=== PATIENT | male | born 1955 | race Caucasian/White ===

== ENCOUNTER 2018-06-16 20:34 | Emergency (ER) | payer OTHER ==
[~2018-06-16] VITALS: Ht 185.4 cm; Wt 79.4 kg
[2018-06-16] MEDS ORDERED: [UNRECOGNIZED DRUG - OTHER] (20:42)
[2018-06-17] MEDS ORDERED: MECLIZINE HCL25 MG PO (00:53)
== END 2018-06-17 01:34 | disposition home or self-care (01) ==
LOC: ER 20:34
DX: R42 Dizziness and giddiness (principal)